=== PATIENT | male | born 1950 | race Caucasian/White ===

== ENCOUNTER → 2016-12-28 | Outpatient (CLI) | payer OTHER ==
[~2016-12-28] MED LIST: ADVAIR 100-501 EACH IH; ADVAIR 1001 DISK W/D; ALLERGY10 M1 PO; ALLERGY10 M2 PO; ANUSOL-HC SUPP25 M1 PR; CALCIUM + VITAM1 TAB PO; CLARITIN10 M2 PO; ENABLEX15 MG PO; FLOMAX0.4 M1; FLOMAX0.4 M1 PO; FLOMAX0.4 MG PO; FLONASE16 GM; FLOVENT DI50 MCG/DIS IH; NASACORT AQ16.5 GM; NEXIUM; NEXIUM PO; OMEPRAZOLE40 MG PO; PANTOPRAZOLE SO40 MG PO; PROTONIX; SINGULAIR; SYNTHROID; SYNTHROID PO; TOPROL XL; TOPROL XL100 MG PO; TUDORZA PRESS400 MCG IH; ULTRAM; ZYRTEC
--- NOTE | ~2016-12-28 | CR169 ---
[facility] A Service of [facility] RADIOLOGY TEXT RESULTS PATIENT: PHILIP LALA LOCATION: [facility] : 46 UNIT #: [id number] AGE: [address]: Brendon Kelly MD SEX: M ORDER DR: [id number] [place] [id number] O MR#: [id number] Acc #: [id number] NAME: PHILIP LALA : 1950 SEX: M STUDY DATE/TIME: 12/28/2016 15:13 UNIT: [facility] ROOM: STUDY DESCRIPTION: CR Knee 2 Views Lt Attending Physician: Brendon Kelly M.D. Referring Physician: Brendon Kelly M.D. Ordering Physician: Brendon Kelly M.D. Primary Care Physician: Brendon Kelly M.D. MEDICAL IMAGING REPORT This report is preliminary unless electronic signature is present. EXAM Left knee 12/28. INDICATIONS Chronic knee pain for 12 years. Old football injury. FINDINGS 2 views of the left knee were obtained. There is tricompartmental osteoarthritis with some mild spurring. No fractures are seen. There is no joint effusion. There is soft tissue swelling over the patellar tendon. IMPRESSION Tricompartmental osteoarthritis. Soft tissue swelling over the patellar tendon. Otherwise negative. Dictated by... Neil Vu Jr., M.D. THIS IS AN ELECTRONICALLY VERIFIED REPORT Neil Vu Jr., M.D. at 12/30/2016 6:06 AM SHIRIN/ezra TD: 12/29/2016 10:52 JOB #: [id number] MEDICAL IMAGING REPORT Page 1 of 1
== END | disposition home or self-care (01) ==
LOC: SRAD 14:30
DX: M25.562 Pain in left knee (principal); M17.12 Unilateral primary osteoarthritis, left knee; M79.89 Other specified soft tissue disorders
CPT/HCPCS: 73560

== ENCOUNTER → 2017-04-05 | Outpatient (CLI) | payer OTHER ==
--- NOTE | ~2017-04-05 | CR63 ---
[facility]. [facility] A Service of [facility] & [facility] RADIOLOGY TEXT RESULTS PATIENT: PHILIP LALA LOCATION: [facility] : 46 UNIT #: [id number] AGE: [address]: Brendon Kelly MD SEX: M ORDER DR: [id number] [place] [id number] O MR#: [id number] Acc #: [id number] NAME: PHILIP LALA : 1950 SEX: M STUDY DATE/TIME: 04/05/2017 17:29 UNIT: [facility] ROOM: STUDY DESCRIPTION: CR Chest 2 View Attending Physician: Brendon Kelly M.D. Referring Physician: Brendon Kelly M.D. Ordering Physician: Brendon Kelly M.D. Primary Care Physician: Brendon Kelly M.D. MEDICAL IMAGING REPORT This report is preliminary unless electronic signature is present. EXAM PA and lateral chest radiograph. INDICATION Congestion and cough for two months. FINDINGS Cardiomegaly is identified without any evidence of vascular congestion. There is elevation of the right hemidiaphragm with associated bronchovascular crowding noted at the right lung base. No pneumothorax, pleural effusion or acute infiltrate is seen. No aggressive osseous abnormalities are identified. IMPRESSION 1. Stable cardiomegaly without evidence of vascular congestion. 2. Diminished lung volumes with bibasilar scarring and elevation of the right hemidiaphragm. Dictated by... Juliet Spencer M.D. THIS IS AN ELECTRONICALLY VERIFIED REPORT Juliet Spencer M.D. at 04/06/2017 2:43 PM AFF/bd TD: 04/06/2017 12:32 JOB #: [id number] MEDICAL IMAGING REPORT Page 1 of 1
== END | disposition home or self-care (01) ==
LOC: SRAD 17:25
DX: R09.89 Other specified symptoms and signs involving the circulatory and respiratory systems (principal); I51.7 Cardiomegaly; J98.4 Other disorders of lung
CPT/HCPCS: 71020